=== PATIENT | male | born 1945 | race Caucasian/White ===

== ENCOUNTER 2021-07-06 07:00 | Day surgery (SDC) | payer MEDICARE, OTHER ==
[~2021-07-06 07:00] MED LIST: Sodium Chloride 0.9% 1,000 ML IV SCH; Sodium Chloride 0.9% 10 ML Syringe FLUSH PRN
[2021-07-06] MEDS ORDERED: Bupivacaine 0.5% 30 ML SDV ONE (07:47)
[2021-07-06] MEDS ORDERED: ceFAZolin 1 GM Vial ONE (07:58)
[2021-07-06] MEDS ORDERED: Propofol 200 MG/20 ML SDV ONE (07:59)
[2021-07-06] MEDS ORDERED: Lidocaine 0.5% 50 ML SDV ONE (07:59)
[2021-07-06] MEDS ORDERED: Midazolam 1 MG/ML 2 ML SDV ONE (07:59)
[2021-07-06] MEDS ORDERED: Bupivacaine 0.5% 10 ML SDV INFILT ONE ×2 (08:36)
== END 2021-07-06 11:05 | disposition home or self-care (01) ==
LOC: KA.SDS 07:00
PROVIDERS: ATTEND Family Medicine
DX: G56.03 Carpal tunnel syndrome, bilateral upper limbs (principal); I48.91 Unspecified atrial fibrillation; I13.0 Hypertensive heart and chronic kidney disease with heart failure and stage 1 through stage 4 chronic kidney disease, or unspecified chronic kidney disease; E11.22 Type 2 diabetes mellitus with diabetic chronic kidney disease; I25.10 Atherosclerotic heart disease of native coronary artery without angina pectoris; E78.00 Pure hypercholesterolemia, unspecified; I25.2 Old myocardial infarction; I50.9 Heart failure, unspecified; E66.9 Obesity, unspecified; F41.9 Anxiety disorder, unspecified; F32.A Depression, unspecified; N18.31 Chronic kidney disease, stage 3a; Z98.890 Other specified postprocedural states; Z90.49 Acquired absence of other specified parts of digestive tract; Z79.02 Long term (current) use of antithrombotics/antiplatelets; Z79.01 Long term (current) use of anticoagulants; Z79.84 Long term (current) use of oral hypoglycemic drugs; Z79.899 Other long term (current) drug therapy; Z87.891 Personal history of nicotine dependence; Z68.33 Body mass index [BMI] 33.0-33.9, adult
CPT/HCPCS: 82947; J0690; J2250; J2704; J3490; J7030

== ENCOUNTER 2021-08-03 07:04 | Day surgery (SDC) | payer MEDICARE, OTHER ==
[2021-08-03] MEDS ORDERED: Propofol 200 MG/20 ML SDV IV ONE (07:05)
[2021-08-03] MEDS ORDERED: Bupivacaine 0.5% 30 ML SDV ONE (07:51)
[2021-08-03] MEDS ORDERED: Propofol 200 MG/20 ML SDV ONE ×2 (08:01→08:33)
[2021-08-03] MEDS ORDERED: ceFAZolin 1 GM Vial ONE (08:01)
[2021-08-03] MEDS ORDERED: Midazolam 1 MG/ML 2 ML SDV ONE (08:01)
[2021-08-03] MEDS ORDERED: Lidocaine 0.5% 50 ML SDV ONE (08:02)
[2021-08-03] MEDS ORDERED: Bupivacaine 0.5% 10 ML SDV INFILT ONE ×2 (08:07)
== END 2021-08-03 10:13 | disposition home or self-care (01) ==
LOC: KA.SDS 07:04
PROVIDERS: ATTEND Family Medicine
DX: G56.02 Carpal tunnel syndrome, left upper limb (principal); I48.91 Unspecified atrial fibrillation; I25.10 Atherosclerotic heart disease of native coronary artery without angina pectoris; I13.0 Hypertensive heart and chronic kidney disease with heart failure and stage 1 through stage 4 chronic kidney disease, or unspecified chronic kidney disease; E11.22 Type 2 diabetes mellitus with diabetic chronic kidney disease; E78.00 Pure hypercholesterolemia, unspecified; I25.2 Old myocardial infarction; E66.9 Obesity, unspecified; I50.9 Heart failure, unspecified; N18.31 Chronic kidney disease, stage 3a; Z95.5 Presence of coronary angioplasty implant and graft; Z79.84 Long term (current) use of oral hypoglycemic drugs; Z79.01 Long term (current) use of anticoagulants; Z79.899 Other long term (current) drug therapy; Z87.891 Personal history of nicotine dependence; Z20.822 Contact with and (suspected) exposure to COVID-19; Z68.30 Body mass index [BMI] 30.0-30.9, adult
CPT/HCPCS: 01810; 82947; J0690; J2250; J2704; J3490; J7030